=== PATIENT | male | born 2000 | race Caucasian/White ===

== ENCOUNTER 2021-09-01 23:19 | Emergency (ER) | payer OTHER ==
[~2021-09-01 23:19] MED LIST: BACTROBAN CREAM15 GM TOP; VIBRAMYCIN100 MG PO
== END 2021-09-02 04:25 | disposition home or self-care (01) ==
LOC: ER1 23:19
DX: M54.50 Low back pain, unspecified (principal); F17.200 Nicotine dependence, unspecified, uncomplicated; X50.9XXA Other and unspecified overexertion or strenuous movements or postures, initial encounter; Y92.89 Other specified places as the place of occurrence of the external cause; Y99.0 Civilian activity done for income or pay
CPT/HCPCS: 72100; 73552; 81001; 99283

== ENCOUNTER 2021-10-09 21:24 | Emergency (ER) | payer OTHER ==
[2021-10-10] MEDS ORDERED: NEURONTIN 100100 MG PO (00:19)
== END 2021-10-10 00:35 | disposition home or self-care (01) ==
LOC: ER1 21:24
DX: G62.9 Polyneuropathy, unspecified (principal); M54.2 Cervicalgia; I51.9 Heart disease, unspecified; F17.200 Nicotine dependence, unspecified, uncomplicated
CPT/HCPCS: 72125; 72128; 72131; 73030; 96372; 99284; J1885